=== PATIENT | male | born 1990 | race Caucasian/White ===

== ENCOUNTER 2018-02-17 21:44 | Emergency (ER) | payer OTHER ==
[~2018-02-17] VITALS: Ht 175.3 cm; Wt 86.2 kg
[~2018-02-17 21:44] MED LIST: ACETAMINOPHEN-1 EAC1 PO; ACTICIN 5% CREA60 G1 TOP; AMOXICILLIN 50500 MG PO; AMOXICILLIN500 M1 PO; CEPHALEXIN 500500 M2 PO; CLEOCIN HCL150 MG PO; DOXYCYCLINE 10100 MG PO; FLAGYL500 MG PO; FLEXERIL PO; HYDROCODON-ACE1 EAC7 PO; HYDROCODONE-AP1 EAC6; HYDROCODONE-AP1 EAC6 PO; HYDROCODONE-APA1 TA1 PO; IBUPROFEN 400400 M2 PO; IBUPROFEN 600600 M1 PO; IBUPROFEN 800800 M1 PO; KEFLEX500 MG PO; LIDOCAINE VISC100 M1 SWISH&SPIT; LIDOCAINE VISC100 ML PO; NAPROSYN500 MG PO; NOHOMEMEDICATIONS; NORCO 5-325 TA1 EAC1 PO; NORCO 5-325 TA1 EACH PO; ONDANSETRON HCL4 M2 PO; PENICILLIN V P500 MG PO; PENICILLIN VK250 MG PO; PENICILLIN VK500 M1 PO; PENICILLIN VK500 MG PO; PERCOCET 5-3251 EACH PO; PERCOCET 7.5-31 EACH PO; PREDNISONE 20 M20 M1 PO; PREDNISONE50 MG PO; ROBAXIN500 MG PO; TRAMADOL 50 MG50 MG PO; ULTRAM 50MG TAB50 MG PO; VALTREX1000 MG PO; VENTOLIN HFA INH8 GM IH
[2018-02-17] MEDS ORDERED: NOHOMEMEDICATIONS (21:52)
[2018-02-17] MEDS ORDERED: IBUPROFEN 800800 MG PO (22:29)
[2018-02-17] MEDS ORDERED: PENICILLIN V P500 MG PO (22:29)
[2018-02-17 22:35] VITALS: BP 122/76
== END 2018-02-17 22:37 | disposition home or self-care (01) ==
LOC: M.ERS 21:44
DX: K08.89 Other specified disorders of teeth and supporting structures (principal); F17.210 Nicotine dependence, cigarettes, uncomplicated; Z88.1 Allergy status to other antibiotic agents

== ENCOUNTER 2019-06-03 12:48 | Emergency (ER) | payer OTHER ==
[~2019-06-03] VITALS: Ht 175.3 cm; Wt 90.7 kg
[~2019-06-03 12:48] MED LIST changes: +IBUPROFEN 800800 MG PO
[2019-06-03] MEDS ORDERED: DOLOPHINE HCL5 MG PO (12:56)
[2019-06-03] MEDS ORDERED: PENICILLIN V P500 MG PO (13:03)
[2019-06-03 13:17] VITALS: BP 110/60
== END 2019-06-03 13:18 | disposition home or self-care (01) ==
LOC: M.ERS 12:48
DX: K08.89 Other specified disorders of teeth and supporting structures (principal); F17.210 Nicotine dependence, cigarettes, uncomplicated; Z88.2 Allergy status to sulfonamides; Z88.1 Allergy status to other antibiotic agents

== ENCOUNTER 2019-07-06 18:49 | Emergency (ER) | payer OTHER ==
[~2019-07-06] VITALS: Ht 175.3 cm; Wt 90.7 kg
[~2019-07-06 18:49] MED LIST changes: +DOLOPHINE HCL5 MG PO
[2019-07-06] MEDS ORDERED: CLEOCIN HCL150 MG PO (20:01)
[2019-07-06 20:04] VITALS: BP 130/68
== END 2019-07-06 20:05 | disposition home or self-care (01) ==
LOC: M.ERS 18:49
DX: K04.7 Periapical abscess without sinus (principal); F17.210 Nicotine dependence, cigarettes, uncomplicated; Z88.1 Allergy status to other antibiotic agents; Z88.2 Allergy status to sulfonamides

== ENCOUNTER 2020-04-07 22:13 | Emergency (ER) | payer OTHER ==
[~2020-04-07] VITALS: Ht 175.3 cm; Wt 90.7 kg
[2020-04-07] MEDS ORDERED: PENICILLIN V P500 MG PO (23:08)
[2020-04-07] MEDS ORDERED: IBUPROFEN 800800 MG PO (23:09)
[2020-04-07 23:10] VITALS: BP 156/90
== END 2020-04-07 23:10 | disposition home or self-care (01) ==
LOC: M.ERS 22:13
DX: S02.5XXA Fracture of tooth (traumatic), initial encounter for closed fracture (principal); K05.10 Chronic gingivitis, plaque induced; K05.6 Periodontal disease, unspecified; F17.210 Nicotine dependence, cigarettes, uncomplicated; Z88.1 Allergy status to other antibiotic agents; Z88.2 Allergy status to sulfonamides; X58.XXXA Exposure to other specified factors, initial encounter; Y93.89 Activity, other specified; Y92.89 Other specified places as the place of occurrence of the external cause; Y99.8 Other external cause status

== ENCOUNTER 2020-08-27 15:30 | Emergency (ER) | payer OTHER ==
[~2020-08-27] VITALS: Ht 175.3 cm; Wt 90.7 kg
[2020-08-27] MEDS ORDERED: CLEOCIN HCL300 MG PO (16:42)
[2020-08-27 16:53] VITALS: BP 115/70
== END 2020-08-27 16:53 | disposition home or self-care (01) ==
LOC: M.ERS 15:30
DX: K02.9 Dental caries, unspecified (principal); F17.210 Nicotine dependence, cigarettes, uncomplicated; Z88.1 Allergy status to other antibiotic agents; Z88.2 Allergy status to sulfonamides